=== PATIENT | male | born 1955 | race Caucasian/White ===

== ENCOUNTER → 2017-12-07 | Outpatient (CLI) | payer OTHER | LOC: BMCIMAGING 13:58 | PROVIDERS: ATTEND Orthopaedic Surgery | DX: M17.11 Unilateral primary osteoarthritis, right knee (principal); Q74.1 Congenital malformation of knee ==

== ENCOUNTER → 2018-01-06 | Outpatient (CLI) | payer OTHER | LOC: FIMAGING 14:38 | PROVIDERS: ATTEND Orthopaedic Surgery | DX: M17.11 Unilateral primary osteoarthritis, right knee (principal) ==

== ENCOUNTER 2018-01-19 05:40 | Inpatient (IN) | payer OTHER ==
[2018-01-19] MEDS ORDERED: TRANEXAMIC ACID 1,000 MG in NS 100 ML IV ONE (06:00)
[2018-01-19] MEDS ORDERED: ROPIVACAINE 0.2% 80 MG, EPINEPHrine 0.2 MG, KETOROLAC TROMETHAMINE 30 MG, morphINE 10 M... IU ONE (06:00)
[2018-01-19] MEDS ORDERED: ceFAZolin 2 GM/DEXTROSE 100 ML IV ONE (06:13)
[2018-01-19] MEDS ORDERED: FAMOTIDINE 20 MG TAB PO ONE (06:13)
[2018-01-19] MEDS ORDERED: LR 1,000 ML IV ONE (06:13)
[2018-01-19] MEDS ORDERED: ACETAMINOPHEN 325 MG TAB PO ONE (06:13)
--- NOTE | 2018-01-19 06:35 | PDHPUP ---
History & Physical Update H&P update statement: This history and physical update is based on an assessment of the patient which was completed after admission or registration (within 24 hours), but prior to the surgery/procedure. H&P update: no change in patient's condition since H&P completed
--- NOTE | 2018-01-19 06:35 | PDIAF ---
- Diagnosis Diagnosis: right knee djd Code Status: Full Code - Medication Management Discharge Medications: electronically signed and located in the Home Medication List. - Orders Services needed: Home Care, Physical Therapy Home Care Face to Face: I certify that this patient was under my care and that I had the required [id number]-jd-[id number] encounter meeting the encounter requirements on the discharge day. My findings support the fact that the patient is homebound as defined in Home Care Face to Face Continued: CMS Chapter 7 Medicare Benefits Manual 30.1.1 , The condition of the patient is such that there exists a normal inability to leave home and consequently, leaving home would require a considerable and taxing effort. Diet Recommendation: no restrictions on diet Diet Texture: Regular Texture Diet Additional Instructions: TOTAL JOINT ARTHROPLASTY DISCHARGE INSTRUCTIONS 1. Your surgeon follows the [facility] protocol for reducing your risk of DVT (blood clots) following surgery. Medication will be ordered to prevent blood clots. A sudden increase in calf pain and/or swelling could indicate a blood clot in your leg. If this occurs, please call your surgeon or his/her retail administrative assistant. An ultrasound of the leg may be necessary to diagnose a blood clot. If you have conditions that make you a higher risk for blood clots, your surgeon may use more aggressive ways to prevent them. Notify your surgeon if you think you are a high risk for blood clots. 2. Wear your white surgical stockings (JORGE hose) for 2 weeks. This decreases your swelling and may help prevent blood clots. It is ok to remove JORGE hose at night time to give your legs a break. 3. Swelling and bruising in the surgical leg is common. If you feel that it is excessive, please notify your surgeon. 4. Elevate your surgical leg with the ankle above the hip several times every day. Please keep the leg straight when you elevate by putting pillows under your foot. Do not put pillows under your knee. This will make being able to fully straighten more difficult. This is uncomfortable, but try to do it as much as possible. 5. For total knee replacements use compressive wrap on your knee for 3-5 days after surgery, then you can discontinue it. 6. Use a walker or crutches for 1-2 weeks. Progress your weight-bearing as tolerated. You may start to use a cane when you feel stable and safe. 7. You will receive physical therapy instructions in the hospital. Continue those exercises at home. There are additional exercises in the total joint booklet you were given before surgery. Outpatient physical therapy will begin 7- 10 days after surgery. Please schedule this in advance. 8. Use ice on your knee at least 3-5 times every day for 30 minutes. This helps reduce pain and swelling. Also use it at night before falling asleep. 9. Leave your surgical dressing in place for 2 weeks. Your dressing is water resistant, but not waterproof. Cover it with Saran Wrap or Binft-w-Cjnp before showering. You may shower as soon as you feel safe entering a shower. If you notice bleeding from your incision 2 or 3 days after surgery, please notify your surgeon. 10. Due to narcotics, decreased activity and altered diet, most patients experience constipation after surgery. Use vtvt-vrf-lielpic stool softeners while you are on narcotics. 11. You may drive a car when you are comfortable bearing weight, have good muscular control of your leg and are off narcotics. This usually occurs 2-4 weeks after surgery, depending on which leg was operated on. 12. If there are questions not addressed here, please refer the [facility] book given for more information. If you still have questions, please contact your surgeon s office. 13. If you have a life-threatening emergency, please call 911 and go to the emergency room immediately. For non-life threatening emergencies, please call your physicians office for advice before going to the emergency room. - Follow Up Care Current Providers and Referrals: MARLINE TROTTER [Primary Care Provider] - Tanner Espino MD [Medical Doctor] -
[2018-01-19] MEDS ORDERED: MIDAZOLAM 2 MG/2 ML VIAL IVP ONE (07:59)
[2018-01-19] MEDS ORDERED: LR 500 ML IV PRN (08:00)
[2018-01-19] MEDS ORDERED: NALOXONE HCL 0.4 MG/ML INJ IVP PRN (08:00)
[2018-01-19] MEDS ORDERED: PHENYLEPHRINE HCL 100 MCG/ML SYR IVP PRN (08:00)
[2018-01-19] MEDS ORDERED: fentaNYL 100 MCG/2 ML INJ IVP PRN (08:00)
[2018-01-19] MEDS ORDERED: MEPERIDINE 25 MG/0.5 ML AMP IVP PRN (08:00)
[2018-01-19] MEDS ORDERED: PROMETHAZINE HCL 25 MG/ML INJ IVP PRN ×2 (08:00→10:49)
[2018-01-19] MEDS ORDERED: oxyCODONE IR 5 MG TAB PO PRN ×2 (08:00→10:49)
[2018-01-19] MEDS ORDERED: ONDANSETRON 4 MG/2 ML VIAL IVP PRN ×2 (08:00→10:49)
[2018-01-19] MEDS ORDERED: METOCLOPRAMIDE 10 MG/2 ML VIAL IVP PRN ×2 (08:00→10:49)
[2018-01-19] MEDS ORDERED: HYDROmorphONE/DILAUDID 2 MG/ML INJ IVP PRN (08:00)
[2018-01-19] MEDS ORDERED: LIDOCAINE 2% 5 ML SDV ONE (08:10)
[2018-01-19] MEDS ORDERED: ROPIVACAINE HCL 150 MG/30 ML INJ ONE (08:10)
[2018-01-19] MEDS ORDERED: ONDANSETRON 4 MG/2 ML VIAL ONE (08:10)
[2018-01-19] MEDS ORDERED: PROPOFOL 200 MG/20 ML VIAL ONE (08:11)
[2018-01-19] MEDS ORDERED: PROPOFOL/EMULSION 500 MG/50 ML BOTTLE IV ONE ×2 (08:11→10:04)
[2018-01-19] MEDS ORDERED: THROMBIN (BOVINE) 5,000 UNIT VIAL TP ONE (08:30)
[2018-01-19] MEDS ORDERED: CALCIUM CHLORIDE 1 GM/10 ML INJ ONE (08:30)
[2018-01-19] MEDS ORDERED: ceFAZolin 1 GM/5 ML SYR ONE (08:31)
[2018-01-19] MEDS ORDERED: BUPIVACAINE/DEXTROSE 7.5MG/ML 2 ML SPINAL AMP SP ONE (08:32)
--- NOTE | 2018-01-19 09:29 | PDANEPAE ---
ANE Past Medical History - Cardiovascular History Hx Hypertension: Yes Hx Arrhythmias: No Hx Chest Pain: Yes Hx Coronary Artery / Peripheral Vascular Disease: Yes Hx CHF / Valvular Disease: No Hx Palpitations: No Cardiovascular History Comment: stents to LAD 2010, 2014. Doing well since last stent. steamship agent took him off Plavix about 6 months ago. Good EF on last echo. - Pulmonary History Hx COPD: No Hx Asthma/Reactive Airway Disease: No Hx Recent Upper Respiratory Infection: No Hx Oxygen in Use at Home: No Hx Sleep Apnea: No Sleep Apnea Screening Result - Last Documented: Positive Pulmonary History Comment: PIERRE triggers - Neurologic History Hx Cerebrovascular Accident: No Hx Seizures: No Hx Dementia: No - Endocrine History Hx Diabetes: No - Renal History Hx Renal Disorders: No - Liver History Hx Hepatic Disorders: No - Neurological & Psychiatric Hx Hx Neurological and Psychiatric Disorders: No - Cancer History Hx Cancer: No - Congenital Disorder History Hx Congenital Disorders: No - GI History Hx Gastrointestinal Disorders: No - Other Health History Other Health History: wears glasses - Chronic Pain History Chronic Pain: Yes (right knee) - Surgical History Prior Surgeries: heart cath 2015. bilateral knee surgery. appendectomy. bleeding ulcer repair. torn bicep tendon repair ANE Review of Systems Review of Systems: - Exercise capacity METS (RN): 4 METS ANE Patient History - Allergies Allergies/Adverse Reactions: No Known Allergies Allergy (Verified 01/09/18 15:14) - Home Medications Home Medications: Aspirin EC [Aspirin EC 81 mg (*)] 10/03/14 [Last Taken 01/12/18] Atorvastatin Calcium 01/09/18 [Last Taken 01/19/18] Hydrochlorothiazide 01/09/18 [Last Taken 01/18/18] Lisinopril [Zestril 20 mg (*)] 01/09/18 [Last Taken 01/18/18] Nebivolol HCl [Bystolic 5 mg (*)] 01/09/18 [Last Taken 01/19/18] - NPO status NPO Since - Liquids (Date): 01/18/18 NPO Since - Liquids (Time): 00:00 NPO Since - Solids (Date): 01/18/18 NPO Since - Solids (Time): 20:30 - Smoking Hx Smoking Status: Never smoked - Family Anes Hx Family Hx Anesthesia Complications: none ANE Labs/Vital Signs - Vital Signs Blood Pressure: 129/87 Heart Rate: 68 Respiratory Rate: 14 O2 Sat (%): 94 Height: 175.26 cm Weight: 79.379 kg ANE Physical Exam - Airway Neck exam: FROM Mallampati Score: Class 2 Mouth exam: normal dental/mouth exam - Pulmonary Pulmonary: no respiratory distress, no rales or rhonchi, clear to auscultation - Cardiovascular Cardiovascular: regular rate and rhythym, no murmur, rub, or gallop - ASA Status ASA Status: III ANE Anesthesia Plan Anesthesia Plan: spinal
[2018-01-19] MEDS ORDERED: BISACODYL 10 MG SUPP PR PRN (10:49)
[2018-01-19] MEDS ORDERED: PROMETHAZINE HCL 25 MG SUPPR PR PRN (10:49)
[2018-01-19] MEDS ORDERED: ONDANSETRON DISINTEGRATING 4 MG TAB PO PRN (10:49)
[2018-01-19] MEDS ORDERED: diphenhydrAMINE 25 MG CAP PO PRN (10:49)
[2018-01-19] MEDS ORDERED: DIPHENOXYLATE/ATROPINE LOMOTIL 1 TAB PO PRN (10:49)
[2018-01-19] MEDS ORDERED: LACTULOSE 20 GM/30 ML UDCUP PO PRN (10:49)
[2018-01-19] MEDS ORDERED: TEMAZEPAM 15 MG CAP PO PRN (10:49)
[2018-01-19] MEDS ORDERED: POLYETHYLENE GLYCOL 3350 17 GM PKT PO PRN (10:49)
[2018-01-19] MEDS ORDERED: CYCLOBENZAPRINE 10 MG TAB PO PRN (10:49)
[2018-01-19] MEDS ORDERED: MAGNESIUM HYDROXIDE 30 ML UDCUP PO PRN (10:49)
--- NOTE | 2018-01-19 10:51 | POSTOPPROG ---
Post Op Note Date of Operation: 01/19/18 Surgeon: Tanner Espino Slip Injector And Applicator: isrela Anesthesiologist: karolyn Anesthesia: Spinal Pre-op Diagnosis: RIGHT KNEE DJD Post-op Diagnosis: SAME Indication: SAME Findings: RIGHT TKA Inf/Abcess present in the surg proc area at time of surgery?: No Depth: Deep Incisional (Fascial) EBL: 100-500
[2018-01-19] MEDS ORDERED: LR 1,000 ML IV SCH (11:00)
--- NOTE | 2018-01-19 12:58 | POSTANESTH ---
Post Anesthetic Evaluation Cardiovascular Status: Normal, Stable Respiratory Status: Normal, Stable Level of Consciousness/Mental Status: Can Participate in Eval Pain Control: Adequate, Prn Tx Ordered Nausea/Vomiting Control: Adequate, Prn Tx Ordered Complications Possibly Related to Anesthesia: None Noted
[2018-01-19] MEDS: TRANEXAMIC ACID 650 MG TAB PO SCH ×2 (13:07→22:03)
[2018-01-19] MEDS: ACETAMINOPHEN 325 MG TAB PO SCH ×2 (13:07→17:43)
--- NOTE | 2018-01-19 13:53 | PDMN ---
Medical Necessity Medical necessity: [facility] S700 knee arthroplasty OP: R TKA - MD anticipates > 2 MN , pt with PMHx cardiac stents, HTN, PIERRE
[2018-01-19] MEDS: ceFAZolin 2 GM/DEXTROSE 100 ML IV SCH (16:28)
[2018-01-19] MEDS: SENNOSIDES/DOCUSATE SODIUM TAB PO SCH (22:02)
[2018-01-19] MEDS: FAMOTIDINE 20 MG TAB PO SCH (22:02)
[2018-01-19] MEDS: ASPIRIN 325 MG TAB PO SCH (22:02)
[2018-01-20] MEDS: ceFAZolin 2 GM/DEXTROSE 100 ML IV SCH (00:31)
[2018-01-20] MEDS: TRANEXAMIC ACID 650 MG TAB PO SCH ×2 (00:32→07:51)
[2018-01-20] MEDS: ACETAMINOPHEN 325 MG TAB PO SCH ×2 (00:32→05:11)
[2018-01-20] MEDS: ASPIRIN 325 MG TAB PO SCH ×2 (00:32→07:52)
[2018-01-20] MEDS ORDERED: PNEUMOCOCCAL 0.5ML VACCINE VIAL (PNEUMOVAX 23) IM ONE (04:57)
--- NOTE | 2018-01-20 06:34 | PDIAF ---
- Diagnosis Diagnosis: right knee djd Code Status: Full Code - Medication Management Discharge Medications: electronically signed and located in the Home Medication List. - Orders Services needed: Home Care, Physical Therapy Home Care Face to Face: I certify that this patient was under my care and that I had the required ymle-sg-tewi encounter meeting the encounter requirements on the discharge day. My findings support the fact that the patient is homebound as defined in Home Care Face to Face Continued: CMS Chapter 7 Medicare Benefits Manual 30.1.1 , The condition of the patient is such that there exists a normal inability to leave home and consequently, leaving home would require a considerable and taxing effort. Diet Recommendation: no restrictions on diet Diet Texture: Regular Texture Diet Additional Instructions: TOTAL JOINT ARTHROPLASTY DISCHARGE INSTRUCTIONS 1. Your surgeon follows the [facility] protocol for reducing your risk of DVT (blood clots) following surgery. Medication will be ordered to prevent blood clots. A sudden increase in calf pain and/or swelling could indicate a blood clot in your leg. If this occurs, please call your surgeon or his/her medical technician assistant. An ultrasound of the leg may be necessary to diagnose a blood clot. If you have conditions that make you a higher risk for blood clots, your surgeon may use more aggressive ways to prevent them. Notify your surgeon if you think you are a high risk for blood clots. 2. Wear your white surgical stockings (JORGE hose) for 2 weeks. This decreases your swelling and may help prevent blood clots. It is ok to remove JORGE hose at night time to give your legs a break. 3. Swelling and bruising in the surgical leg is common. If you feel that it is excessive, please notify your surgeon. 4. Elevate your surgical leg with the ankle above the hip several times every day. Please keep the leg straight when you elevate by putting pillows under your foot. Do not put pillows under your knee. This will make being able to fully straighten more difficult. This is uncomfortable, but try to do it as much as possible. 5. For total knee replacements use compressive wrap on your knee for 3-5 days after surgery, then you can discontinue it. 6. Use a walker or crutches for 1-2 weeks. Progress your weight-bearing as tolerated. You may start to use a cane when you feel stable and safe. 7. You will receive physical therapy instructions in the hospital. Continue those exercises at home. There are additional exercises in the total joint booklet you were given before surgery. Outpatient physical therapy will begin 7- 10 days after surgery. Please schedule this in advance. 8. Use ice on your knee at least 3-5 times every day for 30 minutes. This helps reduce pain and swelling. Also use it at night before falling asleep. 9. Leave your surgical dressing in place for 2 weeks. Your dressing is water resistant, but not waterproof. Cover it with Saran Wrap or Kfckc-m-Ltah before showering. You may shower as soon as you feel safe entering a shower. If you notice bleeding from your incision 2 or 3 days after surgery, please notify your surgeon. 10. Due to narcotics, decreased activity and altered diet, most patients experience constipation after surgery. Use jksq-sti-teykyjo stool softeners while you are on narcotics. 11. You may drive a car when you are comfortable bearing weight, have good muscular control of your leg and are off narcotics. This usually occurs 2-4 weeks after surgery, depending on which leg was operated on. 12. If there are questions not addressed here, please refer the [facility] book given for more information. If you still have questions, please contact your surgeon s office. 13. If you have a life-threatening emergency, please call 911 and go to the emergency room immediately. For non-life threatening emergencies, please call your physicians office for advice before going to the emergency room. - Follow Up Care Current Providers and Referrals: MARLINE TROTTER [Primary Care Provider] - Tanner Espino MD [Medical Doctor] -
--- NOTE | 2018-01-20 06:37 | SOAPPROG ---
SOAP Progress Note Assessment/Plan: Assessment: s/p tka Plan: dc home dvt precautions stable no acute issues 01/20/18 06:34 Subjective: no pain no cp or sob Objective: Vital Signs Temp Pulse Resp BP Pulse Ox 36.7 C 87 17 126/83 H 95 01/20/18 04:00 01/20/18 04:00 01/20/18 04:00 01/20/18 04:00 01/20/18 04:00 Laboratory Results 01/20/18 04:57 01/19/18 01/20/18 01/21/18 05:59 05:59 05:59 Intake Total 2550 Output Total 1770 Balance 780 dressing intact intact pdf,df,ehl toes warm and pink neg homans issa xrays stable alignment, no fx or lucency ICD10 Worksheet Patient Problems: Problems Problem Status Onset Chest pain Acute Coronary artery disease Acute Unstable angina Acute
[2018-01-20] MEDS: FAMOTIDINE 20 MG TAB PO SCH (07:52)
[2018-01-20] MEDS: SENNOSIDES/DOCUSATE SODIUM TAB PO SCH (07:52)
[2018-01-20 07:54] VITALS: BP 138/85
[2018-01-20] MEDS ORDERED: HYDROCHLOROTHIAZIDE 12.5 MG CAP PO SCH (09:00)
[2018-01-20] MEDS ORDERED: LISINOPRIL 20 MG TAB PO SCH (09:00)
[2018-01-20] MEDS ORDERED: NEBIVOLOL HCL 5 MG TAB PO SCH (09:00)
--- NOTE | 2018-01-20 11:19 | ASMTCMCOM ---
CM Note CM Note Notes: Pt medically stable for d/c with [facility] PT. Orders sent in [employer]. Lindy with Family confirms acceptance. Date Signed: 01/20/2018 11:19 AM Electronically Signed By:DESTINY Curry
--- NOTE | 2018-01-20 11:20 | ASDISCHSUM ---
Discharge Information Plan Status:Home with Home Health Medically Cleared to Leave: Discharge Date:01/20/2018 10:56 AM CM D/C Disposition: ADT D/C Disposition:Home Health Service Projected Discharge Date:01/20/2018 11:00 AM Transportation at D/C: Discharge Delay Reason: Follow-Up Date:01/20/2018 11:00 AM Discharge Slot: Final Diagnosis: Placement Information Referral Type:*Home Health Care Services Referral ID:[id number] Provider Name:[facility] Address 1:[id number] 2: City:[place] Selection Factors: State:[place] Patient Contact Information Contact Name:JULIENNE Relationship:Daughter Address:[address] Work Phone: City:[place] Alternate Phone: State/Zip Code:[place] [address] Email: Financial Information Financial Class:HMO and PPO Plans Primary Plan Desc:[employer] Primary Plan Number:[id number] Secondary Plan Desc: Secondary Plan Number: Assessment Information [facility] CM Progress Note CM Note CM Note Notes: Pt medically stable for d/c with [facility] [place] Lindy with Family confirms acceptance. Date Signed: 01/20/2018 11:19 AM Electronically Signed By:DESTINY Curry Intervention Information
--- NOTE | 2018-01-22 12:55 | GDS ---
ADMISSION DIAGNOSIS: Right knee degenerative joint disease. DISCHARGE DIAGNOSIS: Right knee degenerative joint disease. PROCEDURE: Right total knee arthroplasty. HISTORY OF PRESENT ILLNESS: The patient is a 62-year-old gentleman with end-stage arthritis to his k nee. His previous patellectomy from patella fracture. He presents for elective total knee replaceme nt. HOSPITAL COURSE: The patient was admitted to the hospital after uncomplicated total knee arthroplast y. He tolerated the procedure well. At the time of discharge, he is tolerating an oral diet. Pain is well controlled on oral medicines. He is voiding and stooling without difficulty. Dressing is cl danita, dry, and intact. X-rays are stable with anatomic alignment. DISCHARGE MEDICATIONS: Aspirin 325 mg p.o. daily for 6 weeks and oxycodone 5 mg 1 to 2 every 6 hours p.r.n. pain. DISCHARGE INSTRUCTIONS: Follow up in 2 weeks. Seek attention for increasing redness, swelling, drai nage, discharge, or other focal complaint. /[id number]/MODL
--- NOTE | 2018-01-22 13:06 | GOP ---
DATE OF OPERATION: 01/19/2018 SURGEON: Tanner Espino MD MERINGUER: Kervin Clayton, surgical specialist who was a medical necessity for the entirety of the case. PREOPERATIVE DIAGNOSIS: Right knee degenerative joint disease. POSTOPERATIVE DIAGNOSIS: Right knee degenerative joint disease. PROCEDURE PERFORMED: Right total knee arthroplasty. FINDINGS: SPECIMENS: To Pathology, bony cuts. INDICATIONS: The patient is a gentleman who has end-stage arthritis to the medial and lateral compar tments of his right knee. He has longstanding difficulty of his knee and a previous patellectomy for a previous injury. He has failed all attempts at conservative management. I have, therefore, recom mended total knee replacement. He understood the risks, benefits, alternatives, and wished to procee d. Written consent was signed and placed in patient's chart. DESCRIPTION OF PROCEDURE: The patient was identified in the preanesthesia area. The right knee elizabeth rly demarcated as the operative site with indelible marker. He was given 2 g of Ancef intravenously in route to the operative suite. In the OR, spinal anesthetic was placed. Attention was turned to the right knee, which was sterilely prepped and draped in usual fashion. Marie ropriate time-out procedure was carried out. The limb was then sterilely prepped and draped in usual fashion, exsanguinated, and tourniquet inflated to 275 mmHg. A standard anterior midline incision was made through his previous surgical incision site. Thick sub cutaneous flaps were elevated, followed by medial parapatellar arthrotomy. Soft tissue dissection wa s carried out to the mid coronal plane and retractors placed. There was advanced medial and lateral compartment arthritis. Decision was made to proceed with total knee replacement. 2 pins were then placed from medial to lateral and the femoral reference array affixed for the MAKOpl asty protocol, followed by the femoral checkpoint. A separate percutaneous incision was made over th e mid tibia, 2 pins were then placed, and the tibial reference array affixed. The tibial checkpoint was likewise placed. All bony landmarks were entered into the computer in standard fashion. The knee was then balanced through the flexion-extension arc. Using the MAKOplasty software, resecti ons were made for a size 5 femur, size 5 tibia, trial components were then placed, and ultimately, a 5 x 13 mm polyethylene spacer was placed to restore balance through the flexion-extension arc. The t rial components were withdrawn. The tibial and femoral components were then press-fit into position. A 5 x 13 polyethylene spacer wa s then placed confirmed to be fully seated. The knee was taken through full range of motion and had full extension and flexion to 125 degrees without instability with varus, valgus stress. The wound w as then copiously irrigated. The capsule injected with a joint cocktail of ropivacaine, morphine, To radol, and epinephrine. The medial parapatellar arthrotomy closed using #1 Ethibond suture. Subcuta neous tissue using 2-0 Monocryl. The knee was instilled with platelet-rich plasma and the skin close d using a ZipLine closure. Sterile dressing was applied. The patient was then awakened, extubated, taken to recovery room in good stable condition. TOTAL TOURNIQUET TIME: 50 minutes. COMPLICATIONS: None. IMPLANTS: Rafael Triathlon posterior stabilized femoral component size 5, size 5 tibia, 5 x 13 mm X 3 polyethylene spacer. /[id number]/MODL
== END 2018-01-20 10:56 | disposition home health service (06) | DRG 470 ==
LOC: FSGY 05:40 → F3N 10:49
PROVIDERS: ADMIT Orthopaedic Surgery; ATTEND Orthopaedic Surgery
PROC: 0SRC0JA Replacement of Right Knee Joint with Synthetic Substitute, Uncemented, Open Approach (ICD-10-PCS; principal; 2018-01-19 09:00)
DX: M17.11 Unilateral primary osteoarthritis, right knee (principal); I10 Essential (primary) hypertension; I25.10 Atherosclerotic heart disease of native coronary artery without angina pectoris; Z95.5 Presence of coronary angioplasty implant and graft
CPT/HCPCS: 97116-GP; 97161-GP; 97165-GO; G0009; J0171; J0690; J1885; J2250; J2270; J2405; J2704; J2795

== ENCOUNTER 2018-01-26 15:51 | Emergency (ER) | payer OTHER ==
--- NOTE | 2018-01-26 16:24 | EDPHY ---
H & P Stated Complaint: R knee replacmnt infection, yellow drainage Time Seen by Provider: 01/26/18 16:24 HPI/ROS: Chief Complaint: Knee pain, swelling HPI: 62-year-old male who is 6 days status post right knee replacement by Dr. Espino. Patient has been having increasing knee pain. Visiting nurse took down the dressing today noted significant swelling, redness and yellowish discharge. Patient denies fevers or chills. Is having increasing pain. ROS: 10 systems were reviewed and were negative except those elements noted in the HPI. PMH: Hypertension Social History: No smoking, no alcohol, no recreational drug use Family History: non-contributory Physical Exam: Gen: Awake, Alert, No Distress HEENT: Nose: no rhinorrhea Eyes: PERRLA, EOMI Mouth: Moist mucosa Neck: Supple, no JVD Chest: nontender, lungs clear to auscultation Heart: S1, S2 normal, no murmur Abd: Soft, non-tender, no guarding Back: no CVA tenderness, no midline tenderness Ext: Right knee incision is intact however there is a small area of purulent appearing discharge. The knee is erythematous and warm to touch. No calf tenderness. 2+ dorsalis pedis pulses. Sensations intact distally. Capillary refills less than 2 sec. Skin: no rash Neuro: CN II-XII intact, Sensation grossly intact, Strength 5/5 in bilateral upper and lower extremities - Personal History Current Tetanus/Diphtheria Vaccine: Yes Tetanus Vaccine Date: 2014 - Medical/Surgical History Hx Asthma: No Hx Chronic Respiratory Disease: No Hx Diabetes: No Hx Cardiac Disease: Yes Hx Renal Disease: No Hx Cirrhosis: No Hx Alcoholism: No Hx HIV/AIDS: No Hx Splenectomy or Spleen Trauma: No Other PMH: CAD, heart cath with stent 2010 and 2014, bilateral knee surgeries, appy, left wrist surgery, HTN, high cholesterol - Social History Smoking Status: Never smoked Constitutional: Initial Vital Signs Temperature (C) 36.2 C 01/26/18 15:59 Heart Rate 92 01/26/18 15:59 Respiratory Rate 16 01/26/18 15:59 Blood Pressure 133/87 H 01/26/18 15:59 O2 Sat (%) 97 01/26/18 15:59 O2 Delivery Mode Room Air Allergies/Adverse Reactions: No Known Allergies Allergy (Verified 01/26/18 15:59) Home Medications: Medication Instructions Recorded Atorvastatin Calcium [Lipitor 40 80 mg PO HS 01/09/18 mg (*)] Hydrochlorothiazide [HCTZ (*)] 12.5 mg PO DAILY 01/09/18 Lisinopril [Zestril 20 mg (*)] 20 mg PO BID 01/09/18 Nebivolol HCl [Bystolic 5 mg (*)] 10 mg PO DAILY 01/09/18 Aspirin [Aspirin 325 mg (*)] 325 mg PO DAILY tab 01/20/18 oxyCODONE IR [Oxycodone Ir (*)] 5 - 10 mg PO Q3HRS PRN #50 tab 01/20/18 Cephalexin [Keflex (*)] 500 mg PO Q6H #40 cap 01/26/18 Medical Decision Making ED Course/Re-evaluation: I have discussed with Dr. Espino. I have sent him pictures of the knee. He believes the symptoms are secondary likely to hematoma. He is requesting that I aspirate and send for Gram stain. If the Gram stain shows no organisms he would like the patient received Keflex and he will see in his office tomorrow. Gram stain shows no organisms. Will start him on Keflex. Patient will be discharged with follow up with Dr. Espino tomorrow. I have discussed with Dr. Espino. He is happy with this plan. - Data Points Laboratory Results: Laboratory Results 01/26/18 16:41 01/26/18 16:41 01/26/18 01/26/18 01/26/18 17:48 16:41 16:41 WBC 10.07 10^3/uL H 10^3/uL (3.80-9.50) RBC 5.20 10^6/uL 10^6/uL (4.40-6.38) Hgb 15.5 g/dL g/dL (13.7-17.5) Hct 46.2 % % (40.0-51.0) MCV 88.8 fL fL (81.5-99.8) MCH 29.8 pg pg (27.9-34.1) MCHC 33.5 g/dL g/dL (32.4-36.7) RDW 14.0 % % (11.5-15.2) Plt Count 330 10^3/uL 10^3/uL (150-400) MPV 11.1 fL fL (8.7-11.7) Neut % (Auto) 76.8 % H % (39.3-74.2) Lymph % (Auto) 10.0 % L % (15.0-45.0) [place] % (Auto) 10.7 % % (4.5-13.0) Eos % (Auto) 0.8 % % (0.6-7.6) Baso % (Auto) 0.9 % % (0.3-1.7) Nucleat RBC Rel Count 0.0 % % (0.0-0.2) Absolute Neuts (auto) 7.73 10^3/uL H 10^3/uL (1.70-6.50) Absolute Lymphs (auto) 1.01 10^3/uL 10^3/uL (1.00-3.00) Absolute Monos (auto) 1.08 10^3/uL H 10^3/uL (0.30-0.80) Absolute Eos (auto) 0.08 10^3/uL 10^3/uL (0.03-0.40) Absolute Basos (auto) 0.09 10^3/uL 10^3/uL (0.02-0.10) Absolute Nucleated RBC 0.00 10^3/uL 10^3/uL (0-0.01) Immature Gran % 0.8 % % (0.0-1.1) Immature Gran # 0.08 10^3/uL 10^3/uL (0.00-0.10) Sodium 139 mEq/L mEq/L (135-145) Potassium 3.7 mEq/L mEq/L (3.5-5.2) Chloride 105 mEq/L mEq/L (97-110) Carbon Dioxide 24 mEq/l mEq/l (22-31) Anion Gap 10 mEq/L mEq/L (6-14) BUN 26 mg/dL H mg/dL (7-23) Creatinine 0.9 mg/dL mg/dL (0.7-1.3) Estimated GFR > 60 Glucose 117 mg/dL H mg/dL (70-100) Calcium 8.9 mg/dL mg/dL (8.5-10.4) Synovial Source REJ Synovial Color TNP Synovial Appearance TNP Synovial WBC TNP Synovial RBC TNP Microbiology Results: MICROBIOLOGY 01/26/18 17:48 Knee - Aspirate Gram Stain - Final Departure - Departure Disposition: Home, Routine, Self-Care Clinical Impression: Knee pain Condition: Fair Instructions: Knee Pain (ED), Swollen Joint (ED) Additional Instructions: Follow up with Dr. Espino tomorrow. Call 1st thing in the morning for an appointment he will see you that day. Take her full course of antibiotics. You Return emergency department for increasing pain, fevers, or any other concerns. Referrals: MARLINE TROTTER [Primary Care Provider] - As per Instructions Tanner Espino MD [Medical Doctor] - As per Instructions Prescriptions: Cephalexin [Keflex (*)] 500 mg PO Q6H #40 cap
[2018-01-26 16:51] LABS: PLATELET COUNT 330 10^3/uL (150-400)
[2018-01-26] MEDS ORDERED: CEPHALEXIN 500MG PREPACK#4 BTL TAKEHOME ONE (19:37)
[2018-01-26 20:09] VITALS: BP 100/65
--- NOTE | 2018-01-27 15:54 | PQFORM ---
PHYSICIAN QUERY FORM Needs Your Response This query form is being sent to you to assure this patient record is coded properly. Please respond to the question below: ROTATING EQUIPMENT ENGINEER QUESTION: Dear Dr. Armando, Clarification is necessary in order to assign the most appropriate codes for this encounter. Documentation in the ED Course/Re-evaluation indicates that Dr. Espino requested aspiration of the knee for Gram stain. The record shows that a gram stain synovial fluid specimen was sent and resulted. Could you please clarify if you did an aspiration of the knee? A procedure note is required for any invasive procedures and would need to be added to the documentation if necessary. Thank you for your assistance in this matter. Warm regards, Juliette ESCAMILLA, MULESER, [facility] Health Information Management Guitar Repair Technician/Rug Drying Machine Operator [email or web address] INSTRUCTIONS FOR RESPONSE: Answer question by clicking on the "Edit Document" button. Move cursor to area below the stars. When complete, hit "Save." Click on the "Sign" button, then click "Sign" again. Type in your PIN and hit "Enter." Procedure: Arthrocentesis. After verbal informed consent was obtained explaining the risks including but not limited to infection and bleeding a arthrocentesis was performed on the right knee. The patient was prepped and draped in the usual sterile fashion. . Approximately 0.5 mL of dark blood was obtained. There were no complications. The procedure was performed by myself. OMAYRA
== END 2018-01-26 20:09 | disposition home or self-care (01) ==
PROC: 0S9C3ZZ Drainage of Right Knee Joint, Percutaneous Approach (ICD-10-PCS; principal; 2018-01-26)
DX: M25.561 Pain in right knee (principal); G89.18 Other acute postprocedural pain; Z96.651 Presence of right artificial knee joint; E78.00 Pure hypercholesterolemia, unspecified; I10 Essential (primary) hypertension

== ENCOUNTER → 2018-03-01 | Outpatient (CLI) | payer OTHER | END | disposition home or self-care (01) | LOC: BMCIMAGING 10:31 | PROVIDERS: ATTEND Orthopaedic Surgery | DX: Z09 Encounter for follow-up examination after completed treatment for conditions other than malignant neoplasm (principal); Z96.651 Presence of right artificial knee joint ==

== ENCOUNTER → 2018-04-12 | Outpatient (CLI) | payer OTHER | LOC: BMCIMAGING 09:45 | PROVIDERS: ATTEND Orthopaedic Surgery | DX: Z09 Encounter for follow-up examination after completed treatment for conditions other than malignant neoplasm (principal); Z96.651 Presence of right artificial knee joint ==

== ENCOUNTER → 2018-07-12 | Outpatient (CLI) | payer OTHER | LOC: BMCIMAGING 14:14 | PROVIDERS: ATTEND Orthopaedic Surgery | DX: Z47.1 Aftercare following joint replacement surgery (principal); Z96.651 Presence of right artificial knee joint ==